=== PATIENT | female | born 1995 | race Caucasian/White ===

== ENCOUNTER → 2017-08-07 01:36 | Observation (INO) ==
[2017-08-07 01:04] LABS: Bilirubin,Urine Negative (Negative); Blood,Urine Negative (Negative); Clarity,Urine Clear (Clear); Color,Urine Yellow (Yellow); Glucose,Urine (UA) Normal (Normal); Ketones,Urine Negative (Negative); Leukocyte Esterase,Urine Negative (Negative); Nitrite,Urine Negative (Negative); Protein,Urine Negative (Neg-Trace); Specific Gravity,Urine 1.005 (1.010-1.025); Urobilinogen,Urine Normal (Normal)
[2017-08-07 01:10] LABS: Amphetamine Screen,Urine Negative ng/mL (Cutoff=1000); Barbiturate Screen,Urine Negative ng/mL (Cutoff=200); Benzodiazepines Screen,Urine Negative ng/mL (Cutoff=200); Cannabinoid Screen,Urine Positive ng/mL (Cutoff = 50); Cocaine Screen,Urine Negative ng/mL (Cutoff= 300); Opiate Screen,Urine Negative ng/mL (Cutoff=300); Phencyclidine Screen,Urine Negative ng/mL (Cutoff=25)
--- NOTE | 2017-08-07 01:35 | OB/GYN Progress Note ---
Date of Encounter: 08/07/17 Time of Encounter: 01:33 - Assessment and Plan (1) 36 weeks gestation of Current Visit: Yes Status: Acute Discharge home Follow up in office as scheduled tomorrow (2) NST (non-stress test) reactive Current Visit: Yes Status: Acute Subjective - Subjective Principal diagnosis: spotting Interval history: Pt reports singular episode of light spotting noted when she wiped after using the bathroom earlier tonight. Pt denies ctx, LOF, HERNANDEZ, visual disturbances, RUQ pain. Endorses good FM. Objective - Vital Signs Vital Signs: Intake and Output 08/06/17 08/06/17 08/07/17 15:59 23:59 07:59 Other: Weight 70.4 kg Patient Weight 08/07/17 23:59 Weight 70.4 kg - Exam FHR: auscultation normal Auscultation: bilateral: normal Abdomen: Present: normal appearance, soft, gravid Uterus: Present: normal, firm - Labs Labs: Abnormal lab results Ur Specific [place] 1.005 (1.010-1.025) L 08/07/17 00:50 U Marijuana (THC) Screen Positive ng/mL (Cutoff = 50) H 08/07/17 00:50
== END | disposition home or self-care (01) ==
LOC: 1NENULAB
PROVIDERS: ADMIT Student in an Organized Health Care Education/Training Program; ATTEND Student in an Organized Health Care Education/Training Program